=== PATIENT | female | born 1960 | race Two or more races ===

== ENCOUNTER 2020-04-19 14:25 | Outpatient (CLI) | payer OTHER ==
[~2020-04-19 14:25] MED LIST: ALLEGRA ALLERG180 MG PO; FLONASE16 GM NASAL; GILTUSS TR TAB1 EACH PO
== END 2020-04-19 14:45 | disposition home or self-care (01) ==
LOC: MRI 14:25
PROVIDERS: ATTEND Internal Medicine Cardiovascular Disease
DX: K80.80 Other cholelithiasis without obstruction (principal); K80.20 Calculus of gallbladder without cholecystitis without obstruction
CPT/HCPCS: 74181

== ENCOUNTER 2020-04-25 07:14 | Day surgery (SDC) | payer OTHER | END 2020-04-25 17:40 | disposition home or self-care (01) | LOC: CIR.AMB 07:14 | PROVIDERS: ATTEND Specialist | DX: K80.10 Calculus of gallbladder with chronic cholecystitis without obstruction (principal); Z20.828 Contact with and (suspected) exposure to other viral communicable diseases ==